=== PATIENT | female | born 1990 | race Caucasian/White ===

== ENCOUNTER 2016-11-21 23:36 | Emergency (ER) | payer MEDICAID ==
[~2016-11-21] VITALS: Ht 157.5 cm; Wt 77.0 kg
[2016-11-22 01:12] LABS: APPEARANCE,URINE CLOUDY (CLEAR); GLUCOSE, URINE (UA) NEGATIVE (NEGATIVE); KETONES,URINE NEGATIVE (NEGATIVE); LEUKOCYTE ESTERASE ,URINE LARGE (NEGATIVE); OCCULT BLOOD,URINE LARGE (NEGATIVE); PROTEIN,URINE SEE CONFIRM (NEGATIVE)
[2016-11-22 01:13] LABS: ADD UA MICROSCOPIC YES
[2016-11-22 01:25] LABS: SULFOSALICYLIC ACID,URINE 2+ (Negative)
[2016-11-22 01:26] LABS: SQUAMOUS EPITHELIAL CELL,UR Moderate /LPF (None Seen); WBC,URINE 26-50 /HPF (0-5)
[2016-11-22] MEDS ORDERED: NITROFURANTOIN/NITROFURAN MAC 100 MG CAPSULE [MACROBID] PO ONE (02:00)
[2016-11-22] MEDS ORDERED: PHENAZOPYRIDINE HCL 100 MG TABLET PO ONE (02:00)
[2016-11-22 02:25] VITALS: BP 122/89
== END 2016-11-22 02:33 | disposition home or self-care (01) ==
LOC: EMS 23:38
DX: N39.0 Urinary tract infection, site not specified (principal)
CPT/HCPCS: 87086; 99284

== ENCOUNTER 2017-08-07 23:20 | Observation (INO) | payer MEDICAID ==
[~2017-08-07] VITALS: Ht 157.5 cm; Wt 77.6 kg
[2017-08-07 23:41] VITALS: BP 122/68
[2017-08-07] MEDS ORDERED: PREN-154 PO (23:49)
[2017-08-08] MEDS: BETAMETHASONE SOLUSPAN 6 MG/ML 5 ML VIAL IM SCH ×2 (00:55→12:10)
== END 2017-08-08 12:20 | disposition home or self-care (01) ==
LOC: 4S 23:20
PROVIDERS: ADMIT Obstetrics & Gynecology; ATTEND Obstetrics & Gynecology
DX: O26.853 Spotting complicating pregnancy, third trimester (principal); O26.893 Other specified pregnancy related conditions, third trimester; M54.5 Low back pain; Z3A.35 35 weeks gestation of pregnancy
CPT/HCPCS: 59025 ×2; 96372; G0378 ×2; J0702

== ENCOUNTER 2017-08-12 20:53 | Observation (INO) | payer MEDICAID ==
[~2017-08-12] VITALS: Ht 157.5 cm; Wt 75.7 kg
[~2017-08-12 20:53] MED LIST: PREN-154 PO
[2017-08-12 22:25] LABS: AMPHET/METH SCREEN,URINE NEGATIVE (NEGATIVE); BARBITURATE SCREEN, URINE NEGATIVE (NEGATIVE); BENZODIAZEPINES SCREEN,URINE NEGATIVE (NEGATIVE); CANNABINOID SCREEN,URINE NEGATIVE (NEGATIVE); COCAINE SCREEN,URINE NEGATIVE (NEGATIVE); METHADONE SCREEN, URINE NEGATIVE (NEGATIVE); OPIATE SCREEN,URINE NEGATIVE (NEGATIVE)
[2017-08-12 22:29] LABS: PHENCYCLIDINE SCREEN,URINE NEGATIVE (NEGATIVE)
[2017-08-12 22:48] VITALS: BP 113/56
== END 2017-08-12 22:30 | disposition home or self-care (01) ==
LOC: 4S 20:53
PROVIDERS: ADMIT Obstetrics & Gynecology; ATTEND Obstetrics & Gynecology
DX: O26.893 Other specified pregnancy related conditions, third trimester (principal); R10.30 Lower abdominal pain, unspecified; Z3A.36 36 weeks gestation of pregnancy
CPT/HCPCS: 59025; 80307 ×8; G0378

== ENCOUNTER 2018-07-17 18:07 | Emergency (ER) | payer MEDICAID ==
[~2018-07-17] VITALS: Ht 162.6 cm; Wt 73.6 kg
[2018-07-17 18:58] VITALS: BP 110/72
[2018-07-17 18:58] LABS: APPEARANCE,URINE CLEAR (CLEAR); BILIRUBIN,URINE NEGATIVE (NEGATIVE); GLUCOSE, URINE (UA) NEGATIVE (NEGATIVE); KETONES,URINE NEGATIVE (NEGATIVE); LEUKOCYTE ESTERASE ,URINE NEGATIVE (NEGATIVE); NITRATE,URINE NEGATIVE (NEGATIVE); OCCULT BLOOD,URINE NEGATIVE (NEGATIVE); PROTEIN,URINE NEGATIVE (NEGATIVE); UROBILINOGEN,URINE 0.2 mg/dL (<=1.0)
[2018-07-17] MEDS ORDERED: ACETAMINOPHEN 500 MG TABLET PO ONE (19:00)
[2018-07-17 19:05] LABS: BACTERIA,URINE Few /HPF (None Seen); RBC,URINE 0-2 /HPF (0-2); SQUAMOUS EPITHELIAL CELL,UR Moderate /LPF (None Seen)
== END 2018-07-17 19:46 | disposition home or self-care (01) ==
LOC: EMS 18:07
DX: N39.0 Urinary tract infection, site not specified (principal)
CPT/HCPCS: 87086

== ENCOUNTER 2023-01-08 18:33 | Emergency (ER) | payer MEDICAID ==
[~2023-01-08] VITALS: Ht 157.5 cm; Wt 67.3 kg
[2023-01-08 18:38] VITALS: TEMP 98.4
[2023-01-08] MEDS ORDERED: IBUP-1554 PO (21:21)
[2023-01-08 22:12] VITALS: BP 133/83; PULSE 87; RESP 16
== END 2023-01-08 22:14 | disposition home or self-care (01) ==
LOC: EMS 18:39
DX: S93.402A Sprain of unspecified ligament of left ankle, initial encounter (principal); W19.XXXA Unspecified fall, initial encounter; Y93.89 Activity, other specified; Y92.89 Other specified places as the place of occurrence of the external cause; Y99.8 Other external cause status
CPT/HCPCS: 99283

== ENCOUNTER 2024-03-13 07:46 | Emergency (ER) | payer MEDICAID, OTHER ==
[~2024-03-13] VITALS: Ht 160 cm; Wt 63.0 kg
[~2024-03-13 07:46] MED LIST changes: +IBUP-1554 PO; -PREN-154 PO
[2024-03-13 07:55] VITALS: TEMP 100.3
[2024-03-13 08:10] LABS: COVID AG,FIA SOURCE NASAL SWAB
[2024-03-13 08:41] LABS: INFLUENZA TYPE B NEGATIVE FOR TYPE B (NEGATIVE); SARS-COV2 (COVID) ANTIGEN,FIA Negative (Negative)
[2024-03-13 09:11] LABS: INFLUENZA TYPE A POSITIVE FOR TYPE A (NEGATIVE)
[2024-03-13] MEDS ORDERED: OSEL75CA45 PO (11:24)
[2024-03-13] MEDS: ALBUTEROL SULFATE HFA 90 MCG/PUFF 8 GM INHALER IH ONE (11:59)
[2024-03-13 12:08] VITALS: PULSE 78; RESP 20; O2SAT 99
[2024-03-13 12:12] VITALS: PULSE 78; RESP 20; O2SAT 99
[2024-03-13 12:57] VITALS: BP 121/75; PULSE 83; RESP 18; O2SAT 99
== END 2024-03-13 13:06 | disposition home or self-care (01) ==
LOC: EMS 07:46
DX: J10.1 Influenza due to other identified influenza virus with other respiratory manifestations (principal); R11.0 Nausea; Z87.440 Personal history of urinary (tract) infections; Z20.822 Contact with and (suspected) exposure to COVID-19
CPT/HCPCS: 99283; 87426; 87804; 94640; J3535

== ENCOUNTER 2025-02-15 14:35 | Emergency (ER) | payer OTHER ==
[~2025-02-15] VITALS: Ht 162.6 cm; Wt 85.5 kg
[~2025-02-15 14:35] MED LIST changes: -IBUP-1554 PO; +OSEL75CA45 PO
[2025-02-15 14:45] VITALS: BP 127/69; PULSE 95; RESP 20; TEMP 98.2; O2SAT 99
[2025-02-15] MEDS ORDERED: DOXY-354 PO (15:13)
[2025-02-15] MEDS ORDERED: IBUP-1554 PO (15:13)
[2025-02-15] MEDS ORDERED: CEPH-558 PO (15:13)
[2025-02-15] MEDS ORDERED: BACI28.410 TP (15:13)
[2025-02-15] MEDS ORDERED: ACET-66 PO (15:13)
[2025-02-15] MEDS: ACETAMINOPHEN 500 MG TABLET PO ONE (15:15)
[2025-02-15] MEDS: CEPHALEXIN MONOHYDRATE 500 MG CAPSULE PO ONE (15:15)
[2025-02-15] MEDS: IBUPROFEN 600 MG TABLET PO ONE (15:15)
[2025-02-15] MEDS: BACITRACIN 0.9 GM PACKET OINTMENT TP ONE (15:15)
== END 2025-02-15 15:42 | disposition home or self-care (01) ==
LOC: EMS 14:35
DX: L03.116 Cellulitis of left lower limb (principal); I83.018 Varicose veins of right lower extremity with ulcer other part of lower leg; I83.028 Varicose veins of left lower extremity with ulcer other part of lower leg; L73.9 Follicular disorder, unspecified; Z98.51 Tubal ligation status
CPT/HCPCS: 99284; Z7502; Z7610